=== PATIENT | female | born 1985 | race Caucasian/White ===

== ENCOUNTER 2022-04-20 10:59 | Emergency (ER) | payer BC, MEDICAID ==
[~2022-04-20] VITALS: Ht 162.6 cm; Wt 63.6 kg
[~2022-04-20 10:59] MED LIST: CLIN300C17 PO; HYDR-4383 PO; LISI20TA28 PO; LOP25T PO; MUPI1OIN8 BOTHNARES
[2022-04-20 11:39] VITALS: BP 165/112
[2022-04-20] MEDS ORDERED: ondansetron 4mg rapidly disintigrating tab PO ONE (14:30)
[2022-04-20] MEDS ORDERED: cephalexin 250mg capsule PO ONE (14:30)
[2022-04-20] MEDS ORDERED: oxyCODONE IR 5mg (immed. release) tablet PO ONE (14:30)
[2022-04-20] MEDS ORDERED: CEPH500C2 PO (14:31)
== END 2022-04-20 14:53 | disposition home or self-care (01) ==
LOC: ER 10:59
DX: S61.210A Laceration without foreign body of right index finger without damage to nail, initial encounter (principal); I10 Essential (primary) hypertension; W27.0XXA Contact with workbench tool, initial encounter; Y93.89 Activity, other specified; Y92.89 Other specified places as the place of occurrence of the external cause; Y99.8 Other external cause status
CPT/HCPCS: 12001; 73140; 99284; A6222; J7030; A6258; A6449